=== PATIENT | male | born 1975 ===

== ENCOUNTER 2020-03-24 22:52 | Emergency (ER) | payer SELFPAY ==
[2020-03-24 23:13] VITALS: BP 133/77; PULSE 70; RESP 16; TEMP 36.8; O2SAT 98; BMI 25.9
--- NOTE | 2020-03-25 06:48 | W.ED.CHESTPA ---
HPI - Chest Pain General: Chief Complaint: Chest Pain Stated Complaint: cp Time Seen by Provider: 03/24/20 23:10 History of Present Illness: HPI narrative: 45-year-old male presents with chest discomfort. He states that he was brought to [place] from [facility] by the police. He then had to ride into town he had been walking. He became rather anxious, and began to have chest pain. He states his chest pain is improved now, but still there. He has no prior cardiac history. He presents wanting to leave. MD complaint: chest pain Onset (ago): minute(s) Prior episodes: Yes Onset: during exertion Pain location: left chest and right chest Pain radiation: none Quality: tightness and heaviness Relieving factors: nothing Exacerbating factors: nothing Associated symptoms: Reports palpitations; Deny abdominal pain, dyspnea, fever(s), nausea or vomiting Review of Systems Const: Denies: fever(s) Eyes: Denies: change in vision or blurry vision ENMT: Denies: swelling of lips/tongue, bleeding gums, change in hearing, epistaxis, post nasal drip or sinus pain Card: Reports: chest pain and palpitations; Denies: irregular heart rhythm, swelling of feet/ankles, dyspnea on exertion or orthopnea Resp: Denies: dyspnea GI: Denies: abdominal pain, nausea or vomiting : Denies: difficulty urinating or hematuria Musc: Denies: neck pain or back pain Skin/Breast: Denies: rash or pruritus Neuro: Denies: headache(s), dizziness or vertigo Psych: Reports: anxiety PFSH ED PFSH: Social History Smoking and tobacco status: current every day smoker Physical Exam Const: GENERAL APPEARANCE: disheveled (Mildly); not ill appearing and not well hydrated ORIENTATION/CONSCIOUSNESS: Yes oriented to person, Yes oriented to place and Yes oriented to time HENMT: COMMON NORMALS: normocephalic, external ears normal and Normal external nose present HEAD & SCALP: normocephalic FACE & SINUS: normal facial exam NOSE: Normal external nose present and No nasal discharge present EXTERNAL EAR: Yes external ears normal MOUTH: tongue normal Eye: COMMON NORMALS: Equal, round and reactive pupils present, EOMs intact bilaterally and conjunctivae normal EYELID: eyelids normal CONJUNCTIVA: Yes conjunctivae normal PUPIL: Yes Equal, round and reactive pupils present Neck/C-Spine: COMMON NORMALS: full ROM GENERAL: No tracheal deviation Chest: COMMONS NORMALS: normal inspection of the chest CHEST: No tenderness Resp: COMMON NORMALS: clear to auscultation bilaterally EFFORT & INSPECTION: No tachypneic, No respiratory distress, No retractions, No uses accessory muscles and No tracheal deviation AUSCULTATION: clear to auscultation bilaterally, no rhonchi, no wheezes and lung sounds not diminished Cardio: COMMON NORMALS: regular rate and regular rhythm RATE: regular rate RHYTHM: regular rhythm HEART SOUNDS: no murmurs PERIPHERAL PULSES: radial pulses present GI: INSPECTION: No abdominal distension AUSCULTATION: No Hyperactive bowel sounds present and No Hypoactive bowel sounds present PALPATION: No Guarding due to palpation present (GI) and No Rigid due to palpation PERCUSSION: no dullness to percussion and no tympanic to percussion Neuro: SENSORIUM/ORIENTATION: Yes oriented to person, Yes oriented to place and Yes oriented to time Psych: ATTITUDE: No calm INSIGHT: Fair insight present (Psych) Skin: COMMON NORMALS: no rashes or lesions noted GENERAL SKIN EXAM: no rashes or lesions noted Course Vital Signs: Vital signs: Vital Signs Temperature 98.2 F 03/24/20 23:13 Pulse Rate 70 03/24/20 23:13 Respiratory Rate 16 03/24/20 23:13 Blood Pressure 133/77 03/24/20 23:13 Pulse Oximetry 98 03/24/20 23:13 MDM - Chest Pain MDM Narrative: Medical decision making narrative: Upon finding out that his EKG was normal, this patient started asking to leave. It was explained to him that when patients have chest pain, a full work-up including imaging, blood work, and EKGs are involved. He asked to go since his EKG is okay. He is somewhat agitated. He signed an AMA form. Discharge Plan Discharge Patient Disposition: Home, Self-Care Clinical Impression: Anxiety Chest pain Qualifiers: Chest pain type: unspecified Qualified Code(s): R07.9 - Chest pain, unspecified Condition: Stable Prescriptions: No Action No Known Home Medications RF: 0 Discharge Orders: Discharge Order (Routine); Ordered 03/24/20 Ordered By: Thomas Hickey Discharge Diet: Usual diet Discharge Activity: Increase activity as tolerated Patient Instructions: Chest Pain (ED) Activity Restrictions/Additional Instructions: Return for worsening chest pain, shortness of breath, fever greater than 100, other concerning symptoms. Discharge Date/Time: 03/24/20 23:41 Coding Level of Care Code ED [employer] for Frieda Vivas
== END 2020-03-24 23:41 | disposition home or self-care (01) ==
LOC: ER 23:36
PROVIDERS: Emergency Provider Emergency Medicine
DX: R07.9 Chest pain, unspecified (principal); F41.9 Anxiety disorder, unspecified; F17.210 Nicotine dependence, cigarettes, uncomplicated
CPT/HCPCS: 12345; 99281

== ENCOUNTER 2020-03-25 00:22 | Emergency (ER) | payer SELFPAY | END 2020-03-25 00:36 | LOC: ER 00:36 | PROVIDERS: Emergency Provider Emergency Medicine | DX: Z53.21 Procedure and treatment not carried out due to patient leaving prior to being seen by health care provider (principal) | CPT/HCPCS: 99281 ==